=== PATIENT | male | born 1960 | race Two or more races ===

== ENCOUNTER 2021-10-03 22:19 | Emergency (ER) | payer SELFPAY ==
[~2021-10-03] VITALS: Ht 177.8 cm; Wt 97.5 kg
[2021-10-03 22:22] VITALS: BP 155/60
== END 2021-10-04 04:38 | disposition left against medical advice (07) ==
LOC: ER 22:24
DX: S01.21XA Laceration without foreign body of nose, initial encounter (principal); Z53.21 Procedure and treatment not carried out due to patient leaving prior to being seen by health care provider; W19.XXXA Unspecified fall, initial encounter; Y93.89 Activity, other specified; Y92.89 Other specified places as the place of occurrence of the external cause; Y99.8 Other external cause status